=== PATIENT | male | born 1955 | race Caucasian/White ===

== ENCOUNTER → 2019-06-19 | Outpatient (CLI) | payer MEDICARE | LOC: RAD 09:06 | DX: Z13.6 Encounter for screening for cardiovascular disorders (principal); Z87.891 Personal history of nicotine dependence ==

== ENCOUNTER → 2022-10-26 | Day surgery (SDC) | payer MEDICARE | LOC: MSO 08:17 | DX: Z12.11 Encounter for screening for malignant neoplasm of colon (principal); D12.0 Benign neoplasm of cecum | CPT/HCPCS: 00811; J2704; J7120 ==

== ENCOUNTER → 2024-06-05 | Outpatient (CLI) | payer MEDICARE | LOC: RAD 12:17 | DX: J92.9 Pleural plaque without asbestos (principal) ==